=== PATIENT | male | born 1975 | race Hispanic/Latino ===

== ENCOUNTER 2023-09-01 12:58 | Observation (INO) | payer SELFPAY ==
[2023-09-01] VITALS (23 sets, daily range): BP systolic 108–160; BP diastolic 64–91; PULSE 86–105; RESP 14–26; TEMP 36.6–37.1; O2SAT 90–98; BMI 25.7
--- NOTE | 2023-09-01 | PATH_ITS ---
[facility] Accession Number: [id number] No. of containers..01 Tissue . 01 Material submitted: . appendix - APPENDIX . 01 Diagnosis: APPENDIX, APPENDECTOMY: Acute suppurative appendicitis and acute serositis. Negative for dysplasia and malignancy. [facility] 09/08/20232043 Local . 01 Electronically signed: . Dada Mckeon MD, Pathologist NPI- [id number] . 01 Gross description: . Received in formalin with two identifiers and appendix, is a saravia, vermiform appendix measuring 6.4 cm in length by 0.9 cm in diameter with saravia, roughened serosa and adherent material consistent with exudate. The mesoappendix measures up to 2.3 cm. The margin is inked blue, and the lumen of the distal tip contains semisolid possible purulent material. The lumen ranges from less than 0.1 cm to 0.7 cm in diameter. The otero are saravia to brown and range from 0.1 to 0.3 cm thick with no perforation or lesions identified. Rep sections to include the margin en face, one-half of the bisected distal tip, and cross sections are submitted in A1. ([id number]) /MRV 09/03/2023 1509 Local . 01 Pathologist provided ICD-10: K35.80 . 01 CPT . 919967 Specimen Comment: A courtesy copy of this report has been sent to [phone] Performed at: 01 [facility] [address] [place] [address], [place], [place] [id number] MD Arias Francisco MD Phone: [phone]
[2023-09-01 13:24] LABS: Add Manual Diff / Slide Review NO; Basophils Absolute Auto 100 /uL (0-100); Basophils Percent Auto 0.4 % (0-2); Eosinophils Absolute Auto 0 /uL (0-450); Eosinophils Percent Auto 0.2 % (2-4); Hematocrit 44.4 % (41-53); Hemoglobin 15.2 g/dL (13.5-17.5); Lymphocytes Absolute Auto 1500 /uL (1100-4500); Lymphocytes Percent Auto 9.2 % (25-40); Mean Corpuscular HGB Conc 34.2 % (30-36); Mean Corpuscular Hemoglobin 30.5 PG (26-34); Mean Corpuscular Volume 89.2 fL (80-100); Monocytes Absolute Auto 800 /uL (0-900); Neutrophils Absolute Auto 13600 /uL (1500-7000); Neutrophils Percent Auto 85.2 % (50-75); Platelet Count 309 X10^3/uL (150-400); Red Blood Cell Count 4.97 X10^6/uL (4.5-5.9); Red Cell Distribution Width 13.5 % (11.6-14.8); White Blood Cell Count 15.9 X10^3/uL (4.5-11.0)
[2023-09-01 13:37] LABS: Alanine Aminotransferase 36 IU/L (<50); Albumin 4.5 g/dL (3.5-5.0); Albumin Globulin Ratio 1.3 (1.0-2.8); Alkaline Phosphatase 88 U/L (38-126); Aspartate Aminotransferase 28 IU/L (17-59); BUN Creatinine Ratio 32.6 (6-22); Bilirubin Total 0.8 mg/dL (0.2-1.3); Blood Urea Nitrogen 14 mg/dL (9-20); Calcium 8.7 mg/dL (8.4-10.2); Carbon Dioxide 24 mmol/L (22-32); Chloride 105 mmol/L (98-107); Estimated Glomerular Filt Rate > 60 mL/min (>60); Globulin 3.4 g/dL (1.7-4.1); Glucose 157 mg/dL (70-100); HEMOLYSIS < 15 (0-50); Lipase 166 U/L (23-300); Potassium 3.7 mmol/L (3.4-5.1); Sodium 135 mmol/L (137-145); Total Protein 7.9 g/dL (6.3-8.2)
--- NOTE | 2023-09-01 13:47 | ED_ITS ---
HPI - Abdominal Pain General Chief Complaint: Abdominal Pain Stated Complaint: upper abd pain Time Seen by Provider: 09/01/23 13:36 Source: patient Mode of arrival: Ambulatory History of Present Illness HPI narrative: Patient here with daughter. He does not want lithographic photographer services. He wants daughter to translate. Complains of epigastric right upper quadrant discomfort since last night and worsened this morning. No vomiting. No diarrhea. No black or bloody stools. Does not drink daily alcohol. Does not take NSAIDs daily. Denies any abdominal surgical history. Pain is burning type pain 8/10, does not radiate. Not worse with movement. It is reproducible on palpation Related Data Previous Rx's Medication Instructions Recorded acetaminophen 325 mg capsule 650 mg (2 x 325 mg) PO QID PRN 09/01/23 (Tylenol) pain #60 caps docusate sodium 100 mg capsule 100 mg PO BID #30 caps 09/01/23 (Colace) oxycodone 5 mg tablet 5 mg PO Q6H PRN pain #20 tabs 09/01/23 Allergies Allergy/AdvReac Type Severity Reaction Status Date / Time No Known Drug Allergies Allergy Verified 09/01/23 13:07 Review of Systems Review of Systems Narrative: GENERAL: negative chills, fatigue, malaise, fever, sweats. HEENT: negative sinus pain, ear pain, sore throat RESPIRATORY: negative dyspnea, cough CARDIOVASCULAR: negative chest pain, palpitations GASTROINTESTINAL: negative nausea, vomiting, positive abdominal pain : negative dysuria, frequency, hematuria MUSCULOSKELETAL: negative muscle or bony pain SKIN: negative rash, skin lesions NEUROLOGIC: negative weakness, numbness ROS Unobtainable: All systems reviewed & are unremarkable except as noted in HPI and below Patient History Social History household members: spouse and family Smoking Status: Never smoker alcohol intake: never Smoking Status: Never smoker alcohol intake frequency: other Substance Use Type: does not use Exam Narrative Exam Narrative: GENERAL: in no distress, not toxic not dyspneic HEAD: Normocephalic. EYES: Pupils equal round ENT: Mucous membranes moist. NECK: Trachea midline. CARDIOVASCULAR: Regular rate and rhythm RESPIRATORY: Clear to auscultation. Breath sounds equal bilaterally. No wheezes, rales, or rhonchi. GASTROINTESTINAL: Abdomen soft, and flat however reproducible epigastric tenderness and right upper quadrant tenderness. Positive Baker sign. Bowel sounds are present. No pain out of portion to exam. No guarding no rebound EXTREMITIES: No gross deformities. BACK: No flank tenderness. NEURO: AOx4. SKIN: Warm and dry PSYCH: Not anxious, is cooperative Initial Vital Signs Initial Vital Signs: Vital Signs Temperature 97.9 F 09/01/23 13:02 Pulse Rate 105 H 09/01/23 13:02 Respiratory Rate 18 09/01/23 13:02 Blood Pressure 141/88 H 09/01/23 13:02 Pulse Oximetry 98 09/01/23 13:02 Oxygen Delivery Method Room Air 09/01/23 13:02 Course Orders Ordered: Discontinued Medications Acetaminophen (Acetaminophen 325 Mg Tablet) 650 mg PO Q6H PRN PRN Reason: Fever/Mild Pain (1-3) Bupivacaine HCl (Bupivacaine 0.25% (Pf) Vial) 30 ml INJ NOW ONE Stop: 09/01/23 18:22 Last Admin: 09/01/23 18:00 Dose: 30 ml Documented By: ALEJANDRINA Al Hydrox/Mg Hydrox/Simethicone 20 ml/ Lidocaine HCl 15 ml 0 ml PO NOW ONE Stop: 09/01/23 13:47 Last Admin: 09/01/23 13:57 Dose: 35 ml Documented By: IGNACIO Hydromorphone HCl (Hydromorphone 0.5 Mg Inj) 0.5 mg IV Q2H PRN PRN Reason: Pain, Severe (7-10) Hydromorphone HCl (Hydromorphone 1 Mg Inj) 0 mg IV Q5MIN PRN PRN Reason: Pain, Moderate (4-6) Lactated Ringer's (Lactated Ringers) 1,000 mls @ 42 mls/hr IV CONT H[place] Last Admin: 09/01/23 17:38 Dose: 42 mls/hr Documented By: IF Acetaminophen (Ofirmev) 1,000 mg in 100 mls @ 400 mls/hr IV NOW ONE Stop: 09/01/23 18:14 Last Admin: 09/01/23 17:55 Dose: 400 mls/hr Documented By: RC Ibuprofen (Ibuprofen 600 Mg Tablet) 600 mg PO Q6H PRN PRN Reason: Fever/Mild Pain (1-3) Morphine Sulfate (Morphine 4 Mg/Ml Inj) 4 mg IV NOW ONE Stop: 09/01/23 13:47 Last Admin: 09/01/23 13:58 Dose: 4 mg Documented By: IGNACIO Naloxone HCl (Naloxone 0.4 Mg/Ml Vial) 0.2 mg IV Q2MIN PRN PRN Reason: Opiate Reversal Ondansetron HCl (Ondansetron 4 Mg Odt) 4 mg PO NOW PRN PRN Reason: Nausea And Vomiting Ondansetron HCl (Ondansetron 4 Mg/2 Ml Inj) 4 mg IV NOW PRN PRN Reason: Nausea And Vomiting Ondansetron HCl (Ondansetron 4 Mg/2 Ml Inj) 4 mg IV NOW PRN PRN Reason: Nausea And Vomiting Oxycodone HCl (Oxycodone Ir 5 Mg Tablet) 5 mg PO Q3H PRN PRN Reason: Pain, Moderate (4-6) Oxycodone HCl (Oxycodone Ir 10 Mg Tablet) 10 mg PO Q3H PRN PRN Reason: Pain, Severe (7-10) Oxycodone HCl (Oxycodone Ir 5 Mg Tablet) 5 mg PO [place] PRN PRN Reason: Mild or moderate pain Pantoprazole Sodium (Pantoprazole 40 Mg Vial) 40 mg IV NOW ONE Stop: 09/01/23 13:47 Last Admin: 09/01/23 13:58 Dose: 40 mg Documented By: IGNACIO Vital Signs Vital signs: Vital Signs - 8 hr 09/01/23 13:02 Temperature 97.9 F Pulse Rate 105 H Respiratory Rate 18 Blood Pressure 141/88 H Pulse Oximetry 98 Oxygen Delivery Method Room Air MDM - Abdominal Pain Lab Data 09/01/23 13:10 09/01/23 13:10 Labs: Lab Results 09/01/23 Range/Units 13:10 WBC 15.9 H (4.5-11.0) X10^3/uL RBC 4.97 (4.5-5.9) X10^6/uL Hgb 15.2 (13.5-17.5) g/dL Hct 44.4 (41-53) % MCV 89.2 (80-100) fL MCH 30.5 (26-34) PG MCHC 34.2 (30-36) % RDW 13.5 (11.6-14.8) % Plt Count 309 (150-400) X10^3/uL Neut % (Auto) 85.2 H (50-75) % Lymph % (Auto) 9.2 L (25-40) % [place] % (Auto) 5.0 (3-14) % Eos % (Auto) 0.2 L (2-4) % Baso % (Auto) 0.4 (0-2) % Neut # (Auto) 38369 H (9364-7969) /uL Lymph # (Auto) 1500 (1107-8650) /uL [place] # (Auto) 800 (0-900) /uL Eos # (Auto) 0 (0-450) /uL Baso # (Auto) 100 (0-100) /uL Sodium 135 L (137-145) mmol/L Potassium 3.7 (3.4-5.1) mmol/L Chloride 105 (98-107) mmol/L Carbon Dioxide 24 (22-32) mmol/L BUN 14 (9-20) mg/dL Creatinine 0.43 L (0.66-1.25) mg/dL Estimated GFR > 60 (>60) mL/min BUN/Creatinine Ratio 32.6 H (6-22) Glucose 157 H (70-100) mg/dL Calcium 8.7 (8.4-10.2) mg/dL Total Bilirubin 0.8 (0.2-1.3) mg/dL AST 28 (17-59) IU/L ALT 36 (<50) IU/L Alkaline Phosphatase 88 (38-126) U/L Total Protein 7.9 (6.3-8.2) g/dL Albumin 4.5 (3.5-5.0) g/dL Globulin 3.4 (1.7-4.1) g/dL Albumin/Globulin Ratio 1.3 (1.0-2.8) Lipase 166 (23-300) U/L Imaging Data CT scan - abdomen/pelvis: Radiologist's Impression: [address] [address] [address] Scan Report Signed Patient: Conrad Vickers MR#: [id number] : 1975 Acct:[id number] Age/Sex: 47 / M Date of Service: 09/01/23 Loc: ED Accession Number: [id number] Procedure: CT abdomen pelvis w con Ordering Provider: Erick Rodriguez MD PROCEDURE: CT ABDOMEN PELVIS W CON INDICATIONS: Upper abdominal pain TECHNIQUE: After the administration of intravenous contrast, axial sections acquired from the lung bases to the pubic symphysis. Coronal and sagittal reformats were performed. For radiation dose reduction, the following was used: automated exposure control, adjustment of mA and/or kV according to patient size. COMPARISON: None. FINDINGS: Image quality: Diagnostic. Lower Chest: No significant findings. ABDOMEN: Liver: No solid mass. Mild diffuse hepatic steatosis. Gallbladder: No radiopaque gallstones or wall thickening. Biliary ducts: No biliary dilation. Pancreas: No ductal dilation. Spleen: Size is within normal limits. Adrenal Glands: No adrenal nodules. Kidneys and Ureters: No hydronephrosis. No solid mass. No complex renal cystic lesion which requires follow up. Stomach and Bowel: Normal colonic caliber, without significant wall thickening. Diverticulosis without evidence of diverticulitis. The appendix is dilated and filled with fluid with inflammatory change in the adjacent fat. At the tip of the appendix, it measures 11.6 mm. Findings suggest probable acute appendicitis. Reference axial image 65 of series 2. Peritoneum: No abnormal intraperitoneal fluid. No free air. Ventral Wall: No significant ventral hernia. Abdominal Nodes: No retroperitoneal or mesenteric adenopathy by size criteria. Vessels: Aorta and inferior vena cava are normal in size. PELVIS: Pelvic Organs: Unremarkable. Bladder: No bladder wall thickening, accounting for underdistention. Pelvic Nodes: No enlarged lymph nodes. Miscellaneous: No inguinal hernias are seen. Bones: No aggressive osseous abnormality. IMPRESSION: 1. Findings suggest acute appendicitis. However, this does not correlate with the described location of patient pain. 2. Diverticulosis without evidence of diverticulitis. 3. Mild diffuse hepatic steatosis. Dictated by: Talib Euceda M.D. on 09/01/2023 at 14:25 Approved by: Talib Euceda M.D. on 09/01/2023 at 14:32 MDM Narrative Medical decision making narrative: Patient here with daughter. He does not want lithographic photographer services. He wants daughter to translate. Complains of epigastric right upper quadrant discomfort since last night and worsened this morning. No vomiting. No diarrhea. No black or bloody stools. Does not drink daily alcohol. Does not take NSAIDs daily. Denies any abdominal surgical history. Pain is burning type pain 8/10, does not radiate. Not worse with movement. It is reproducible on palpation After history and exam CBC CMP lipase CT abdomen pelvis Zofran morphine normal saline Protonix Maalox MDM Medical records reviewed: No recent visit for this complaint Differential considered: Includes but not limited to cholecystitis cholelithiasis pancreatitis gastritis acid reflux Lab Test results independently reviewed as above. Pertinent findings: WBC 15.9 hemoglobin 15.2 sodium 135 potassium 3.7 AST 28 ALT 36 total bilirubin 0.8 Imaging studies independently reviewed: CT abdomen pelvis positive appendicitis Consultations: 3:[address] Pike, surgeon, who will admit patient Treatments: Morphine Zofran Protonix Maalox normal saline, Zosyn Re-evaluations: 3:10 p.m.. Updated patient and family results. They do agree and understand need for admission and surgery Discussion: Appropriate for admission for acute appendicitis. Pain is controlled. Surgeon has been contacted. Diagnosis: Acute appendicitis Discharge Plan Departure Patient Disposition: Admitted as Observation Clinical Impression: Acute appendicitis Qualifiers: Acute appendicitis type: unspecified acute appendicitis type Qualified Code(s): K35.80 - Unspecified acute appendicitis Admit Date/Time: 09/01/23 14:59 Admit Provider: Endy Pike
[2023-09-01] MEDS: MAG HYDROX/ALUMINUM/SIMETH SUS 20 ML, LIDOCAINE VISCOUS 2% 15 ML PO (13:57)
[2023-09-01] MEDS: MORPHINE 4 MG/ML INJ IV (13:58)
[2023-09-01] MEDS: PANTOPRAZOLE 40 MG VIAL IV (13:58)
--- NOTE | 2023-09-01 15:52 | PM.HP.1 ---
History of Present Illness History of Present Illness Date Patient Seen: 09/01/23 Time Patient Seen: 17:15 Chief complaint: upper abd pain Narrative: 47 y.o man no significant past medical history presents to [facility] Department with complaint of abdominal pain. He is Sudanese-speaking only he is here with his daughter who is providing translation. Discomfort began yesterday today focused in the right lower quadrant. On arrival afebrile mild tachycardia, WBC [address] abdomen pelvis demonstrates dilated appendix stranding no abscess. No previous abdominal surgery. [facility] Social History Smoking Status: Never smoker Meds Home Medications and Allergies Allergies Allergy/AdvReac Type Severity Reaction Status Date / Time No Known Drug Allergies Allergy Verified 09/01/23 13:07 Exam Vital Signs (past 8 hours): - 09/01/23 13:02 09/01/23 13:16 09/01/23 13:30 Temperature 97.9 F Pulse Rate 105 H 105 H 104 H Respiratory Rate 18 26 H Blood Pressure 141/88 H Pulse Oximetry 98 96 97 Oxygen Delivery Method Room Air 09/01/23 13:31 09/01/23 13:31 09/01/23 14:13 Temperature Pulse Rate 102 H 98 H Respiratory Rate 26 H Blood Pressure 139/88 Pulse Oximetry 97 Oxygen Delivery Method 09/01/23 14:14 09/01/23 14:14 09/01/23 14:30 Temperature Pulse Rate 98 H Respiratory Rate 24 Blood Pressure 153/78 H 143/76 H Pulse Oximetry 96 Oxygen Delivery Method 09/01/23 14:30 09/01/23 15:00 09/01/23 15:00 Temperature Pulse Rate 93 H 97 H Respiratory Rate 20 25 H Blood Pressure 136/84 Pulse Oximetry 96 96 Oxygen Delivery Method Oxygen Delivery Method Room Air Narrative Exam Narrative: GENERAL: A well nourished, well developed adult, uncomfortable, in no acute distress. HEENT: Normocephalic, atraumatic. No scleral icterus CHEST: Rising symmetrically. No audible wheezes CARDIOVASCULAR: Warm and well perfused. Regular rate ABDOMEN: Focal peritonitis right lower quadrant EXTREMITIES: Normal tone and without edema. NEUROLOGIC: Moving all extremities spontaneously. No gross motor deficits. Objective Labs 09/01/23 13:10 09/01/23 13:10 Labs: Laboratory Results - last 24 hr 09/01/23 13:10 WBC 15.9 H RBC 4.97 Hgb 15.2 Hct 44.4 MCV 89.2 MCH 30.5 MCHC 34.2 RDW 13.5 Plt Count 309 Neut % (Auto) 85.2 H Lymph % (Auto) 9.2 L [place] % (Auto) 5.0 Eos % (Auto) 0.2 L Baso % (Auto) 0.4 Neut # (Auto) 47806 H Lymph # (Auto) 1500 [place] # (Auto) 800 Eos # (Auto) 0 Baso # (Auto) 100 Sodium 135 L Potassium 3.7 Chloride 105 Carbon Dioxide 24 BUN 14 Creatinine 0.43 L Estimated GFR > 60 BUN/Creatinine Ratio 32.6 H Glucose 157 H Calcium 8.7 Total Bilirubin 0.8 AST 28 ALT 36 Alkaline Phosphatase 88 Total Protein 7.9 Albumin 4.5 Globulin 3.4 Albumin/Globulin Ratio 1.3 Lipase 166 Assessment & Plan Assessment and plan (1) Acute appendicitis: Qualifiers: Acute appendicitis type: unspecified acute appendicitis type Qualified Code(s): K35.80 - Unspecified acute appendicitis Status: Acute Assessment & Plan narrative: 47-year-old healthy man with symptoms and radiographic findings consistent with acute appendicitis. CT abdomen pelvis personally reviewed demonstrates acute appendicitis no abscess. Discussed management options including antibiotic therapy versus appendectomy. Following discussion preference is to proceed with laparoscopic appendectomy. Overview of the operation discussed. Operative risks including but not limited to hemorrhage, infection, damage to surrounding structures, conversion open and rare but serious complications such as myocardial infarction, stroke, and were reviewed. Questions have been answered he is in agreement with this plan. Provides his consent to proceed.
[2023-09-01] MEDS: LACTATED RINGERS 1,000 ML 42 ML IV (17:38)
--- NOTE | 2023-09-01 17:49 | SUR.HOLD ---
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 Jody fluent in maori. Patient understands quite well and speaks basic mongolian.
[2023-09-01] MEDS: ACETAMINOPHEN IV 1,000 MG/100 ML VIAL 400 MG IV (17:55)
[2023-09-01] MEDS: BUPIVACAINE 0.25% (PF) VIAL 30 ML INJ (18:00)
--- NOTE | 2023-09-01 18:11 | SUR.OPER ---
Supine on padded OR bed, head on pillow, arms padded and tucked at sides, legs uncrossed, safety belt at thigh, tape over blanket over lower legs .
--- NOTE | 2023-09-01 18:37 | PM.OP.1 ---
Operative Date/Time/Diagnoses Date of procedure: 09/01/23 Time of procedure: 18:37 Pre-op diagnosis: Acute appendicitis Post-op diagnosis: same Procedure & Clinicians Procedure: Laparoscopic appendectomy Same procedure as scheduled: Yes Indications: 47-year-old man with symptoms and radiographic findings consistent with acute appendicitis. Following discussion he elects to proceed with laparoscopic appendectomy Surgeon: Endy Pike Click Yes if Unassisted: Yes Anesthesia Type: General Operative Notes Findings: Acute non perforated appendicitis. Small amount of purulent fluid within the pelvis. Specimen(s): other (Appendix) Estimated Blood Loss (mL): 20 Procedure in detail: Patient was brought to the operating room placed supine on the table. Bilateral lower extremity compression devices were applied. Anesthesia was induced and they intubated with an endotracheal tube. They received 2 g of Ancef prior to skin incision. The left arm was tucked and appropriately padded. They were prepped and draped in sterile fashion. Time-out was performed. An infraumbilical incision was made the umbilical stalk was grasped and elevated and incision was made and the abdomen was entered atraumatically. A 12 mm balloon trocar was then placed through the incision and pneumoperitoneum of 14 mm Hg was established. The scope was then inserted and the abdomen inspected, there was no evidence of injury upon entry. Two 5 mm ports were placed under direct visualization, one in the left lower quadrant and second in the lower midline. A thorough laparoscopic evaluation was performed inspecting all four quadrants. The patient was then tilted right side up. The small bowel was then swept to the upper aspect of the abdomen. The tenie were followed to the base of the cecum where the appendix was identified. The appendix was was mobilized from its lateral attachments. It was acutely inflamed but not perforated. The appendix was grasped and a window within the mesentery was made at the base of the appendix using the [place] dissector with care to avoid injuring the cecum. The mesoappendix was then divided using the endo-stapler with a staple length of 2.5 mm-white load. The mesenteric staple line was inspected for hemostasis. The appendix was then amputated flush at the cecum using the endo-stapler blue load. The specimen was retrieved using a endoscopic retrieval bag through the 10 mm infra-umbilical port. The right paracolic gutter and the pouch of Pual were irrigated The 5 mm ports were then removed under direct visualization. The umbilical fascial incision was closed with 0 Vicryl in a figure-eight fashion. The skin wounds were irrigated and closed with 4-0 Monocryl followed by the application of Dermabond. Sponge instrument count at the end of the operation was correct. The patient tolerated procedure well was extubated and transferred to the postoperative care unit in stable condition. Complications: none Post-operative Condition: stable Disposition: same day surgery
--- NOTE | 2023-09-01 20:46 | PC.NURSE ---
Discharge note: Patient teaching done at bedside with patient and daughter present to translate. Daughter also had mother on speaker phone to listen. Family is aware to f/u with surgery in 2 weeks for f/u an knows to call and sched. Family states understanding of wound care, lifting and exercise precautions. questions when patient can return to work. 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 Advised patient to take time off for healing but should be okay to return to work as long as he is adhering to lifting activity restrictions. Patient was dressed, IV removed. Patient is sitting up at edge of bed at this time eating soda crackers and juice. Patient to call when ready to be taken down to private vehicle. Patient is in stable condition and states he feels well to go home right now.
== END 2023-09-01 20:20 | disposition home or self-care (01) ==
LOC: ED 13:58 → AC 15:00
PROVIDERS: Admitting Provider Surgery; Emergency Provider Emergency Medicine; Referring Provider Emergency Medicine; Visit Provider Surgery
PROC: 0DTJ4ZZ Resection of Appendix, Percutaneous Endoscopic Approach (ICD-10-PCS; CPT 44970; principal; 2023-09-01 17:45)
DX: K35.80 Unspecified acute appendicitis (principal)
CPT/HCPCS: 44970; 36415; 74177; 80053; 81003; 83690; 85025; 96374; 96375; 99222; 99284; G0378; C9113; J0136; J0330; J1100; J1885; J2270; J2405; J2704; J3010